=== PATIENT | female | born 1995 | race Asian ===

== ENCOUNTER 2024-12-29 08:18 | Outpatient (AMB) | payer BC, SELFPAY ==
[2024-12-29 08:34] VITALS: BP 126/90; PULSE 96; RESP 18; TEMP 36.2; O2SAT 98; BMI 38.0
--- NOTE | 2024-12-29 08:34 | GYNCLNT_ITS ---
Vital Signs 12/29/24 08:34 Height 1.5 m Height Method Stated Weight 85.445 kg Weight Measurement Method Standing Scale BMI 38.0 BP 126/90 H Blood Pressure Source Automatic Cuff Blood Pressure Location Left Upper Arm Position Sitting Respiration 18 Pulse 96 Pulse Source Monitor Temp 97.2 F Temp Source Oral Pulse Oximetry (%) 98 Oxygen Delivery Method Room Air Allergies/Home Meds Allergies & Medications Allergies No Known Allergies Allergy (Verified 12/29/24 08:34) Medication Reconciliation No Known Home Medications 12/29/24 [History Confirmed 12/29/24] Intake Visit Data Collection New Patient or Established: New Patient (never been to [facility]) Reason for Visit:: IRREGULAR MENSES Seen by Clinical Staff ONLY (RN/MA): No Property Assessment Monitor Required: No Do You Feel Safe at Home: Yes Authorities Contacted: N/A PCP or OBGYN visit in last 3 months: No Hx Now: No Are you currently on any form of Control: No Last menstrual period: 10/21/24 Pain Present Currently: No Pain Scale Used: Ramirez-Dumont/Numerical Pain scale:: 0 Smoking Status Smoking Status: Never smoker 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 Was on letrozole at [facility] in 2022 and did ovulate for 3 months. Did not get . Her cycles became irregular once she was on control in college. Patient is . Her has never had a semen analysis. 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 Last Pap in 2022. Other Relevant History: History of early miscarriage x 2 at 4 weeks and 5 weeks. No D&Cs. Questionnaires Covid-19 Vaccine Questionnaire Has patient been vacinated for Covid-19 Have you been vacinated for Covid-19: Yes PHQ-9 PHQ-2 Over the last 2 weeks, how often have you been bothered by any of the following problems? 1. Little interest or pleasure in doing things: not at all 2. Feeling down, depressed, or hopeless: not at all Total score: 0 PHQ-9 3. Trouble falling or staying asleep, or sleeping too much: Not at all 4. Feeling tired or having little energy: Not at all 5. Poor appetite or overeating: Not at all 6. Feeling bad about yourself - or that you are a failure or have let yourself or your family down: Not at all 7. Trouble concentrating on things, such as reading the newspaper or watching television: Not at all 8. Moving or speaking so slowly that other people could have noticed? - Or the opposite - being so fidgety or restless that you have been moving around a lot more than usual: not at all 9. Thoughts that you would be better off or of hurting yourself in some way: Not at all Total score: 0 If you checked off any problems, how difficult have these problems made it for you to do your work, take care of things at home, or get along with other people?: not difficult at all Source: Developed by Drs. Manuel Olvera, Vandana Urbano, Tomi Hartmann and colleagues, with an educational albino from [employer]. 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 Tobacco History Smoking Status: Never smoker Second Hand Smoke Exposure: No Alcohol History Alcohol Intake: Never Domestic Abuse History Do You Feel Safe at Home: Yes History of Present Illness HPI Narrative The patient is a 29-year-old -0-2-0 status post early miscarriage x 2 in 2015 and 2018 who presents with her spouse to discuss abnormal periods. They do desire . She started her cycles at age 15 they were regular until she went on control in college. Patient does desire she was able to ovulate on letrozole in 2022 when she was given this at [facility]. I do not have any records on her. She has not eaten today and would like lab work performed. Her is with her he is healthy about the same age neither of them smoke or drink or have any other chronic medical problems. Review of Systems Review of Systems Narrative Review of Systems: The patient reports abnormal uterine bleeding. She has blood for the last 6 weeks. Not heavy. No abnormal discharge. No dysuria. No pelvic pain. No galactorrhea. No visual changes. No abnormal hair growth. She does report acne. Exam General Limitations: no limitations General Appearance: alert, in no apparent distress, comfortable, cooperative, healthy appearing and well groomed Neck Neck exam: Present normal inspection, full ROM and trachea midline Chest Chest inspection: Present normal inspection and symmetric chest wall rise Resp Respiratory exam: Present normal lung sounds bilaterally Card Cardiovascular exam: Present regular rate, normal rhythm and normal heart sounds Abdominal Abdominal exam: Present soft and normal bowel sounds Psych Psychiatric exam: Present normal affect and normal mood Skin Skin exam: Present warm, dry, intact and normal color Office Procedures OB Clinic LOC & Office Proc's Nursing/Assessment Patient Status: Initial/New Patient OB Clinic Nursing Assessment: Medication Reconciliation, Update PMH in EMR and Vital Signs OB Clinic Coordination of Care: Complex Care and Chronic Disease 1-5, Education Complex Pt/Fam, Consent,records obtained, informed consent, Lab and Imaging orders and Staff clarify orders New Patient Charge New Patient Point Assignment: 1104 New Patient Point Charge: PREPARED FOODS SERVICE TEAM 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 Patient is fasting so we will check a lipid profile. Will check pelvic ultrasound once this is back if patient is not ovulating we will draw her and try her on Clomid or letrozole. Patient is in agreement this plan if she is ovulating 3 months and still not then we need to pursue semen analysis patient will call back in about 2 weeks to get lab results and discuss the plan. (2) Infertility associated with anovulation: Status: Acute
== END 2024-12-29 09:28 | disposition home or self-care (01) ==
LOC: HODSOBC 08:18
PROVIDERS: PCP Pediatrics; Referring Provider Pediatrics; Supervising Provider Obstetrics & Gynecology; Visit Provider Obstetrics & Gynecology
DX: N93.8 Other specified abnormal uterine and vaginal bleeding (principal); N97.0 Female infertility associated with anovulation
CPT/HCPCS: 99203; G0463

== ENCOUNTER → 2024-12-29 | Outpatient (CLI) | payer BC, SELFPAY ==
[2024-12-29 11:45] LABS: Glucose Estimated Average 103 mg/dL (80-131); Hemoglobin A1C 5.2 % Hgb (4.8-6.0)
[2024-12-29 11:51] LABS: Cardiac Risk Estimate 3.7 RATIO (3.7-5.6); Cholesterol 201 mg/dL (132-200); HDL Cholesterol 55 mg/dL (40-60); LDL Cholesterol,Calculated 116 mg/dL (0-130); Thyroid Stimulating Hormone 1.54 uIU/mL (0.55-4.78); Triglycerides 149 mg/dL (30-150)
[2025-01-21 06:42] LABS: Albumin 4.7 g/dL (3.6-5.1); Estradiol, Free 1.18 pg/mL; Estradiol, Total 50 pg/mL; Luteinizing Hormone* 13.4 mIU/mL; Prolactin* 5.7 ng/mL; SHBG 15 nmol/L (17-124); Testosterone, Bioavailable 21.2 ng/dL (0.5-8.5); Testosterone, Free 9.9 pg/mL (0.2-5.0)
[2025-01-21 08:15] LABS: Testosterone,Total* DUPLICATE ORDER
== END | disposition home or self-care (01) ==
PROVIDERS: PCP Obstetrics & Gynecology; Referring Provider Obstetrics & Gynecology; Visit Provider Obstetrics & Gynecology
DX: N97.0 Female infertility associated with anovulation (principal); N93.8 Other specified abnormal uterine and vaginal bleeding
CPT/HCPCS: 36415; 80061; 82040; 82670; 82681; 83001; 83002; 83036; 84146; 84270; 84403; 84443

== ENCOUNTER → 2025-01-08 | Outpatient (CLI) | payer BC, SELFPAY ==
--- NOTE | 2025-01-08 | XR_ITS ---
Examination: Transvaginal ultrasound of the pelvis, complete Technique: Transvaginal sonographic images pelvis performed using christie scale imaging Exam date and time: 2024 1150 hours INDICATIONS: Infertility years FINDINGS: Uterus 7.7 cm endometrial stripe 1.6 cm No uterine mass or intrauterine gestation Right ovary 3.5 cm arterial flow Left ovary 3.6 cm arterial flow IMPRESSION: Negative study.
== END | disposition home or self-care (01) ==
LOC: CDIM 11:15
PROVIDERS: PCP Obstetrics & Gynecology; Referring Provider Obstetrics & Gynecology; Visit Provider Obstetrics & Gynecology
DX: N93.8 Other specified abnormal uterine and vaginal bleeding (principal); N97.0 Female infertility associated with anovulation
CPT/HCPCS: 76830

== ENCOUNTER 2025-01-29 15:35 | Outpatient (AMB) | payer BC, SELFPAY ==
--- NOTE | 2025-01-29 15:39 | GYNCLNT_ITS ---
Allergies/Home Meds Allergies & Medications Allergies No Known Allergies Allergy (Verified 01/29/25 15:39) Medication Reconciliation letrozole 2.5 mg tablet 2.5 mg PO Q24H 5 days #5 tabs 01/31/25 [Rx] medroxyprogesterone 10 mg tablet (Provera) 10 mg PO QDAY 10 days #10 tabs 01/31/25 [Rx] Intake Visit Data Collection New Patient or Established: Established Patient (seen at [facility] within 3 years) Reason for Visit:: LAB RESULTS TELEMED Seen by Clinical Staff ONLY (RN/MA): No Singe Winder Required: No Do You Feel Safe at Home: Yes Authorities Contacted: N/A PCP or OBGYN visit in last 3 months: Yes Date of Last PCP or OBGYN visit: 12/29/24 Hx Now: No Are you currently on any form of Control: No Pain Present Currently: No Pain Scale Used: Ramirez-Dumont/Numerical Pain scale:: 0 Smoking Status Smoking Status: Never smoker For Telemed visit only Telemed Video/Phone Visit: Yes Verbal consent obtained for Telemed visit?: Yes Verbal Consent witness name: AMELIE ROMERO Telemed Video/Phone visit w/Clinical Staff: 21-30 min 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 1. Little interest or pleasure in doing things: not at all PHQ-9 8. Moving or speaking so slowly that other people could have noticed? - Or the opposite - being so fidgety or restless that you have been moving around a lot more than usual: not at all Source: Developed by Drs. Manuel Olvera, Vandana Urbano, Tomi Hartmann and colleagues, with an educational albino from [employer]. 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 Tobacco History Smoking Status: Never smoker Second Hand Smoke Exposure: No Alcohol History Alcohol Intake: Never Domestic Abuse History Do You Feel Safe at Home: Yes History of Present Illness HPI Narrative The patient is a 29-year-old -0-2-0 history of early miscarriage x 2 in the past who presents for a TeleMed conference on her lab and ultrasound reports. She desires . She was on letrozole about 2 years ago with [facility] and did ovulate. She is interested in trying this again if possible. She had lab work drawn 12/29/24 revealing a normal hemoglobin globin A1c of 5.2 cholesterol slightly high at 201 LDL normal at 116 HDL normal at 55, her thyroid was normal ,her estradiol was normal, FSH was 8 , LH 13.4 and her prolactin 5.7 which was normal. Her free testosterone was elevated at 9.9, total testosterone 21.2 which was also elevated, sex hormone binding globulin slig htly low at 15. An ultrasound performed 01/08/2025 revealed the uterus to be 7.7 cm with a stripe of 1.6 cm, no uterine mass or intrauterine gestation, right and left ovary were normal per report. Upon reviewing the films myself it appears that she has a polycystic ovarian appearance to her ovaries. Review of Systems Review of Systems Narrative Review of Systems: Patient states she has not had a period since September and now she is actually having 1 that is lasted for 2 weeks. We did discuss the fact that her stripe was thick on her ultrasound from December and she is probably shedding her lining. The plan will be to wait for a cycle in January. If no cycles she will take progesterone to withdraw and then start letrozole. Office Procedures OB Clinic LOC & Office Proc's Nursing/Assessment Patient Status: Established Patient OB Clinic Nursing Assessment: Medication Reconciliation, Update PMH in EMR and Vital Signs OB Clinic Coordination of Care: Complex Care and Chronic Disease 1-5, Consent,records obtained, informed consent, Education Simp Pt/Fam, Results/Orders obtained and Staff clarify orders Established Patient Charge Established Patient Point Assignment: 90 Telehealth If patient is seen using Teleconference methods, complete New/Est section, but DO NOT kayy points only kayy the correct Telemed visit type Telemed Phone/Video with patient at home & ,PA,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 We will withdraw patient on Provera and then start letrozole. All questions were answered (2) DUB (dysfunctional uterine bleeding): Status: Acute (3) PCOS (polycystic ovarian syndrome): Status: Acute Assessment and Plan: Based on elevated androgens, polycystic ovarian appearance to ovaries, abnormal FSH LH ratio, and anovulation patient most likely has polycystic ovarian syndrome. Recommend withdrawing every 4 months. Recommend control pills between pregnancies. Patient desires now. Recommend Provera withdrawal next month if no cycle followed by letrozole. If patient is not after 3 months of letrozole, her significant other needs a semen analysis. Right now patient's hemoglobin A1c is normal. Weight loss was encouraged as BMI is 38. Additional Plan Will prescribe Provera. Letrozole. Patient will need to come back for day 21 progesterone's.
== END 2025-01-29 16:32 | disposition home or self-care (01) ==
LOC: HODSOBC 15:35
PROVIDERS: PCP Obstetrics & Gynecology; Referring Provider Obstetrics & Gynecology; Supervising Provider Obstetrics & Gynecology; Visit Provider Obstetrics & Gynecology
DX: N97.0 Female infertility associated with anovulation (principal); N93.8 Other specified abnormal uterine and vaginal bleeding; E28.2 Polycystic ovarian syndrome
CPT/HCPCS: 99212; G0463